=== PATIENT | female | born 1940 | race Caucasian/White ===

== ENCOUNTER 2021-05-17 05:47 | Inpatient (IN) | payer MEDICARE ==
[~2021-05-17] VITALS: Ht 160 cm; Wt 76.6 kg
[2021-05-17] MEDS ORDERED: SODIUM CHLORIDE 0.9% 1,000 ML IV ONE (06:00)
[2021-05-17] MEDS ORDERED: ONDANSETRON 2MG/ML, 2ML IVPush ONE (06:00)
[2021-05-17] MEDS ORDERED: MORPHINE SULFATE 4 MG/ML, 1ML IVPush PRN (06:00)
[2021-05-17] MEDS ORDERED: LOSA25TA25 PO (06:10)
[2021-05-17] MEDS ORDERED: TRAM50TA2 PO (06:10)
[2021-05-17] MEDS ORDERED: ALLO300T80 PO (06:10)
[2021-05-17] MEDS ORDERED: APIX5TAB PO (06:10)
[2021-05-17] MEDS ORDERED: PROP20TA PO (06:10)
[2021-05-17] MEDS ORDERED: CALC0.5C9 PO (06:11)
--- NOTE | 2021-05-17 06:12 | NUR ---
PT TRANSFERRED HERE FOR LEFT SIDED KIDNEY STONE. VSS. PT RECIEVED 15 MG TORADOL AND 2G CEFTRIAXONE PRACTICE MANAGER. PT HAS NO COMPLAINTS OF PAIN AT THIS TIME. CALL LIGHT IN REACH
[2021-05-17 06:26] LABS: BASOPHILS % (AUTO) 1 % (0-1); EOSINOPHILS % (AUTO) 0 % (1-7); LYMPHOCYTES % (AUTO) 8 % (22-44); MEAN CORPUSCULAR HEMOGLOBIN 30.2 pg (27.0-34.8); MEAN PLATELET VOLUME 8.6 fL (7.4-10.4); MONOCYTES % (AUTO) 9 % (2-9); NEUTROPHILS % (AUTO) 82 % (42-75); PLATELET COUNT 192 x10^3/uL (130-400); RED BLOOD COUNT 4.57 x10^6/uL (3.82-5.3); RED CELL DISTRIBUTION WIDTH 14.6 % (9.6-15.2)
[2021-05-17 06:33] LABS: ALANINE AMINOTRANSFERASE 12 U/L (12-78); ALBUMIN 3.2 g/dL (3.4-5.0); ANION GAP 6 mmol/L (5-15); CALCIUM 10.4 mg/dL (8.5-10.1); CHLORIDE 114 mmol/L (98-107)
[2021-05-17 06:36] LABS: ALKALINE PHOSPHATASE 79 U/L (45-117); BILIRUBIN,TOTAL 0.7 mg/dL (0.2-1.0); CREATININE 1.45 mg/dL (0.55-1.02); TOTAL PROTEIN 6.7 g/dL (6.4-8.2)
--- NOTE | 2021-05-17 07:08 | NUR ---
REPORT TAKEN FROM TRA MERAZ AT BEDSIDE, PT A&O, RESPS EVEN AND UNLABORED. PT HAS NO COMPLAINT AT THIS TIME.
--- NOTE | 2021-05-17 07:30 | NUR ---
EDMD BOSCOVICH AT BEDSIDE TO UPDATE PT WITH RESULTS AND POC. EDMD NOTIFIED PT HAS WBC 16.2, PER [facility] WORKUP/TX HAS ALREADY BEEN COMPLETED AT OUTLYING FACILITY TILE TRIMMER.
--- NOTE | 2021-05-17 07:42 | NUR ---
PT RESTING ON GURNEY, REPORTS SLIGHT RIGHT FLANK PAIN, DECLINES NEED FOR PAIN MEDICATION. PT KEPT NPO. BP AND SPO2 MONITORS IN PLACE. PT PROVIDED WITH CHAPSTICK FOR DRY LIPS, DENIES OTHER NEEDS. CALL LIGHT IN REACH. AWAITING ADMIT ORDER AND ROOM ASSIGNMENT.
--- NOTE | 2021-05-17 08:05 | NUR ---
urologist at bedside, plan for OR this pm. pt instructed to maintain NPO status, verbalizes understanding.
--- NOTE | 2021-05-17 08:54 | NUR ---
REPORT GIVEN TO [facility] TRA BURROWS PT AWAITING TRANSPORT AT THIS TIME.
[2021-05-17] MEDS ORDERED: MORPHINE SULFATE 4 MG/ML, 1ML ONE (08:56)
[2021-05-17] MEDS ORDERED: FENTANYL PF 100 MCG/2ML ONE (09:16)
[2021-05-17] MEDS ORDERED: POLYETHYLENE GLYCOL 17 GM PACKET PO PRN (09:30)
[2021-05-17] MEDS ORDERED: morphine SULFATE 10 MG/ML, 1ML IVPush PRN (09:30)
[2021-05-17] MEDS: NS + 20MEQ KCL 1,000 ML IV SCH ×3 (09:30→23:53)
[2021-05-17] MEDS ORDERED: ONDANSETRON 2MG/ML, 2ML IVPush PRN ×2 (09:30→11:30)
[2021-05-17] MEDS ORDERED: ONDANSETRON ODT 4 MG PO PRN (09:30)
[2021-05-17] MEDS ORDERED: ACETAMINOPHEN 500 MG TABLET PO PRN (09:30)
[2021-05-17] MEDS ORDERED: PHARMACY MAY ADJ FOR RENAL FX MC SCH (10:00)
[2021-05-17] MEDS ORDERED: SODIUM CHLORIDE 0.9% 1,000ML IV ONE (10:00)
[2021-05-17] MEDS ORDERED: SODIUM CHLORIDE 0.9% 1,000 ML IV SCH (10:00)
[2021-05-17] MEDS ORDERED: CHLORHEXIDINE 15 ML UDC PO ONE (10:30)
[2021-05-17 10:58] LABS: BASOPHILS % (AUTO) 0 % (0-1); EOSINOPHILS % (AUTO) 0 % (1-7); LYMPHOCYTES % (AUTO) 6 % (22-44); MEAN CORPUSCULAR HEMOGLOBIN 29.5 pg (27.0-34.8); MEAN CORPUSCULAR HGB CONC 32.4 g/dL (32.4-35.8); MEAN PLATELET VOLUME 8.4 fL (7.4-10.4); MONOCYTES % (AUTO) 10 % (2-9); NEUTROPHILS % (AUTO) 84 % (42-75); PLATELET COUNT 195 x10^3/uL (130-400); RED BLOOD COUNT 4.46 x10^6/uL (3.82-5.3); RED CELL DISTRIBUTION WIDTH 14.8 % (9.6-15.2)
[2021-05-17 11:02] LABS: ALANINE AMINOTRANSFERASE 11 U/L (12-78); ALBUMIN 3.2 g/dL (3.4-5.0); ANION GAP 7 mmol/L (5-15); CALCIUM 10.2 mg/dL (8.5-10.1); CHLORIDE 113 mmol/L (98-107); CREATININE 1.53 mg/dL (0.55-1.02)
[2021-05-17 11:04] LABS: ALKALINE PHOSPHATASE 74 U/L (45-117); BILIRUBIN,TOTAL 0.8 mg/dL (0.2-1.0); TOTAL PROTEIN 6.5 g/dL (6.4-8.2)
[2021-05-17] MEDS ORDERED: PROPOFOL 10 MG/ML, 20ML ONE (11:20)
[2021-05-17] MEDS ORDERED: CEFAZOLIN 1,000 MG ONE (11:20)
[2021-05-17] MEDS ORDERED: MEPERIDINE/PF 25MG/0.5ML IVPush PRN (11:30)
[2021-05-17] MEDS ORDERED: HYDROmorphone 1 MG/ML, 1ML INJ IVPush PRN (11:30)
[2021-05-17] MEDS ORDERED: HYDROcodone/APAP 7.5-325MG/15ML UDC PO PRN (11:30)
[2021-05-17] MEDS ORDERED: PROMETHAZINE 25 MG/ML, 1ML IVPush PRN (11:30)
[2021-05-17] MEDS ORDERED: OXYcodone 5 MG/5 ML ORAL.SOL UDC PO PRN (11:30)
[2021-05-17] MEDS ORDERED: FENTANYL PF 100 MCG/2ML IV PRN (11:30)
[2021-05-17] MEDS ORDERED: OMNIPAQUE 350 MG/ML, 50 ML BOTTLE ONE (11:37)
[2021-05-17 13:24] VITALS: BP 133/72
[2021-05-17 14:31] LABS: MICROSCOPIC AUTO
[2021-05-17 16:54] LABS: INTERNATIONAL NORMALIZED RATIO 0.98 (0.93-1.1); PROTHROMBIN TIME 10.5 Seconds (9.6-11.5)
[2021-05-17] MEDS: CEFTRIAXONE 1,000 MG in DEXTROSE 5% 50 ML IVPB SCH (18:04)
[2021-05-17 19:02] VITALS: BP 114/71
[2021-05-17] MEDS: APIXABAN 5 MG TABLET PO SCH (21:36)
[2021-05-18 01:29] VITALS: BP 132/79
[2021-05-18 05:33] LABS: BASOPHILS % (AUTO) 1 % (0-1); EOSINOPHILS % (AUTO) 0 % (1-7); LYMPHOCYTES % (AUTO) 6 % (22-44); MEAN CORPUSCULAR HGB CONC 32.8 g/dL (32.4-35.8); MEAN PLATELET VOLUME 8.5 fL (7.4-10.4); MONOCYTES % (AUTO) 8 % (2-9); NEUTROPHILS % (AUTO) 86 % (42-75); PLATELET COUNT 163 x10^3/uL (130-400); RED BLOOD COUNT 4.08 x10^6/uL (3.82-5.3); RED CELL DISTRIBUTION WIDTH 14.6 % (9.6-15.2)
[2021-05-18 05:46] LABS: ANION GAP 7 mmol/L (5-15); CALCIUM 9.4 mg/dL (8.5-10.1); CHLORIDE 118 mmol/L (98-107); CREATININE 1.17 mg/dL (0.55-1.02)
[2021-05-18 08:03] VITALS: BP 133/72
[2021-05-18] MEDS: SENNA/DOCUSATE TABLET PO SCH (09:00)
[2021-05-18] MEDS: APIXABAN 5 MG TABLET PO SCH ×2 (09:42→20:26)
[2021-05-18] MEDS: PROPRANOLOL 20 MG TABLET PO SCH (09:43)
[2021-05-18] MEDS: CALCITRIOL 0.5 MCG CAPSULE PO SCH (09:43)
[2021-05-18] MEDS: NS + 20MEQ KCL 1,000 ML IV SCH (12:06)
[2021-05-18 13:04] VITALS: BP 143/75
[2021-05-18] MEDS ORDERED: PHARMACY MAY ADJ FOR RENAL FX MC PRN (16:00)
[2021-05-18] MEDS: FLUCONAZOLE 200 MG/100 ML 100 ML IV SCH (18:09)
[2021-05-18 18:46] VITALS: BP 100/65
[2021-05-18] MEDS: CEFTRIAXONE 1,000 MG in DEXTROSE 5% 50 ML IVPB SCH (19:36)
[2021-05-19 00:19] VITALS: BP 117/69
[2021-05-19 06:56] VITALS: BP 129/83
[2021-05-19 07:29] LABS: BASOPHILS % (AUTO) 1 % (0-1); EOSINOPHILS % (AUTO) 1 % (1-7); LYMPHOCYTES % (AUTO) 8 % (22-44); MEAN CORPUSCULAR HEMOGLOBIN 30.2 pg (27.0-34.8); MEAN CORPUSCULAR HGB CONC 32.2 g/dL (32.4-35.8); MEAN PLATELET VOLUME 8.3 fL (7.4-10.4); MONOCYTES % (AUTO) 11 % (2-9); NEUTROPHILS % (AUTO) 79 % (42-75); PLATELET COUNT 168 x10^3/uL (130-400); RED BLOOD COUNT 4.18 x10^6/uL (3.82-5.3); RED CELL DISTRIBUTION WIDTH 14.7 % (9.6-15.2)
[2021-05-19 07:38] LABS: ANION GAP 5 mmol/L (5-15); CALCIUM 9.7 mg/dL (8.5-10.1); CHLORIDE 115 mmol/L (98-107); CREATININE 1.11 mg/dL (0.55-1.02)
[2021-05-19] MEDS: SENNA/DOCUSATE TABLET PO SCH (08:23)
[2021-05-19] MEDS: APIXABAN 5 MG TABLET PO SCH ×2 (08:24→20:10)
[2021-05-19] MEDS: LOSARTAN 25MG TABLET PO SCH (08:24)
[2021-05-19] MEDS: CALCITRIOL 0.5 MCG CAPSULE PO SCH (08:24)
[2021-05-19] MEDS: PROPRANOLOL 20 MG TABLET PO SCH (08:24)
[2021-05-19 12:59] VITALS: BP 143/78
[2021-05-19] MEDS: FLUCONAZOLE 200 MG/100 ML 100 ML IV SCH (18:39)
[2021-05-19 19:06] VITALS: BP 135/71
[2021-05-19] MEDS: CEFTRIAXONE 1,000 MG in DEXTROSE 5% 50 ML IVPB SCH (20:10)
[2021-05-20 00:32] VITALS: BP 145/73
[2021-05-20 05:46] LABS: BASOPHILS % (AUTO) 1 % (0-1); CALCIUM 9.7 mg/dL (8.5-10.1); CHLORIDE 115 mmol/L (98-107); EOSINOPHILS % (AUTO) 2 % (1-7); LYMPHOCYTES % (AUTO) 10 % (22-44); MEAN CORPUSCULAR HEMOGLOBIN 30.6 pg (27.0-34.8); MEAN CORPUSCULAR HGB CONC 33.2 g/dL (32.4-35.8); MEAN PLATELET VOLUME 9.3 fL (7.4-10.4); MONOCYTES % (AUTO) 10 % (2-9); NEUTROPHILS % (AUTO) 77 % (42-75); PLATELET COUNT 179 x10^3/uL (130-400); RED BLOOD COUNT 4.06 x10^6/uL (3.82-5.3); RED CELL DISTRIBUTION WIDTH 14.6 % (9.6-15.2)
[2021-05-20 05:50] LABS: ANION GAP 6 mmol/L (5-15); CREATININE 0.99 mg/dL (0.55-1.02)
[2021-05-20 06:47] VITALS: BP 137/70
[2021-05-20] MEDS: SENNA/DOCUSATE TABLET PO SCH (09:00)
[2021-05-20] MEDS: CALCITRIOL 0.5 MCG CAPSULE PO SCH (09:27)
[2021-05-20] MEDS: PROPRANOLOL 20 MG TABLET PO SCH (09:27)
[2021-05-20] MEDS: APIXABAN 5 MG TABLET PO SCH (09:27)
[2021-05-20] MEDS: LOSARTAN 25MG TABLET PO SCH (09:27)
[2021-05-20 12:17] VITALS: BP 149/76
[2021-05-20] MEDS ORDERED: CEFD300C37 PO (13:34)
[2021-05-20] MEDS ORDERED: FLUC200T4 PO (13:34)
[2021-05-20] MEDS ORDERED: FLUCONAZOLE 200 MG TABLET PO SCH (21:00)
[2021-05-20] MEDS ORDERED: CEFDINIR 300 MG CAPSULE PO SCH (21:00)
== END 2021-05-20 16:42 | disposition home or self-care (01) | DRG 660 ==
LOC: ED 06:21 → ORIP 08:09 → 3N 09:03
PROVIDERS: ADMIT Internal Medicine; ATTEND Internal Medicine
PROC: 0T9B70Z Drainage of Bladder with Drainage Device, Via Natural or Artificial Opening (ICD-10-PCS; 2021-05-17)
PROC: BT1F1ZZ Fluoroscopy of Left Kidney, Ureter and Bladder using Low Osmolar Contrast (ICD-10-PCS; 2021-05-17)
PROC: 0T778DZ Dilation of Left Ureter with Intraluminal Device, Via Natural or Artificial Opening Endoscopic (ICD-10-PCS; principal; 2021-05-17 09:30)
DX: N13.6 Pyonephrosis (principal); N20.2 Calculus of kidney with calculus of ureter; D68.69 Other thrombophilia; I48.20 Chronic atrial fibrillation, unspecified; B37.49 Other urogenital candidiasis; N10 Acute pyelonephritis; Z66 Do not resuscitate; Z20.822 Contact with and (suspected) exposure to COVID-19; N17.9 Acute kidney failure, unspecified; B96.20 Unspecified Escherichia coli [E. coli] as the cause of diseases classified elsewhere; R25.1 Tremor, unspecified; E21.3 Hyperparathyroidism, unspecified; G89.29 Other chronic pain; I10 Essential (primary) hypertension; M19.90 Unspecified osteoarthritis, unspecified site; Z96.651 Presence of right artificial knee joint; Z79.01 Long term (current) use of anticoagulants; Z86.718 Personal history of other venous thrombosis and embolism; Z88.2 Allergy status to sulfonamides
CPT/HCPCS: 36415; 74420; 80048; 80053; 81001; 83605; 85025; 85610; 87040; 87077; 87086; 87106; 87186; 87635; 93005; 99285; G0378; J0690; J0696; J2704; J3010; J3480; Q9967; C1758; C1769; C2617; J1450; J7030